=== PATIENT | female | born 1985 | race Caucasian/White ===

== ENCOUNTER 2016-06-22 13:37 | Day surgery (SDC) | payer BC, OTHER ==
[~2016-06-22] VITALS: Ht 157.5 cm; Wt 88.0 kg
[~2016-06-22 13:37] MED LIST: ALLEGRA ALLERGY60 MG PO; ASPIR 8181 M1 PO; ENDOCET 5-3251 EACH PO; GLUCOPHAGE XR,500 MG PO; IBUPROFEN800 MG PO; METFORMIN HCL500 M1 PO; PRENATAL TABLE1 EAC3 PO; VENTOLIN HFA18 GM IH; VITAMIN D10000 UNIT PO; ZANTAC75 M1 PO
[2016-06-22 14:35] LABS: HEMATOCRIT 35.8 % (36.0-46.0); MCH 29.3 PG (29.0-34.0); MCHC 34.4 G/DL (30.0-36.0); MCV 85.2 FL (83-99); MEAN PLAT.VOLUME 9.6 uM^3 (9.5-12.4); PLATELET COUNT 262 K/uL (156-360); RBC DIS.WIDTH-CV 13.1 % (11.8-14.6); RBC DIS.WIDTH-SD 40.5 % (39-53); WHITE BLOOD COUNT 8.6 K/uL (4.1-10.2)
[2016-06-22 14:36] VITALS: BP 115/74
[2016-06-22 17:05] VITALS: BP 109/59
[2016-06-22 18:09] VITALS: BP 100/56
[2016-06-22 20:05] VITALS: BP 109/70
== END 2016-06-22 20:30 | disposition home or self-care (01) ==
LOC: SDC 13:37
PROVIDERS: Obstetrics & Gynecology Maternal & Fetal Medicine
PROC: 0UVC7ZZ Restriction of Cervix, Via Natural or Artificial Opening (ICD-10-PCS; principal; 2016-06-22)
DX: O34.31 Maternal care for cervical incompetence, first trimester (principal); Z3A.11 11 weeks gestation of pregnancy; O99.280 Endocrine, nutritional and metabolic diseases complicating pregnancy, unspecified trimester; O26.21 Pregnancy care for patient with recurrent pregnancy loss, first trimester; E72.12 Methylenetetrahydrofolate reductase deficiency; Z79.82 Long term (current) use of aspirin; Z79.84 Long term (current) use of oral hypoglycemic drugs; E28.2 Polycystic ovarian syndrome; Z68.36 Body mass index [BMI] 36.0-36.9, adult; O99.511 Diseases of the respiratory system complicating pregnancy, first trimester; J45.909 Unspecified asthma, uncomplicated; O99.351 Diseases of the nervous system complicating pregnancy, first trimester; G43.909 Migraine, unspecified, not intractable, without status migrainosus
CPT/HCPCS: 85027; 86850; 86900; 86901; J7120

== ENCOUNTER 2016-10-04 09:03 | Outpatient (CLI) | payer BC ==
[2016-10-04] MEDS ORDERED: ZANTAC75 M1 PO (09:24)
[2016-10-04] MEDS ORDERED: CLARITIN10 M3 PO (09:24)
[2016-10-04 09:30] VITALS: BP 96/54
[2016-10-04 10:36] VITALS: BP 93/54
== END 2016-10-04 11:31 | disposition home or self-care (01) ==
LOC: LDRP-OP 09:03 → 2WEST 09:04
DX: O36.8120 Decreased fetal movements, second trimester, not applicable or unspecified (principal); Z3A.27 27 weeks gestation of pregnancy
CPT/HCPCS: 59025; G0378

== ENCOUNTER → 2016-10-08 | Outpatient (CLI) | payer BC ==
[~2016-10-08] VITALS: Ht 154.9 cm; Wt 93.0 kg
[~2016-10-08] MED LIST changes: +CLARITIN10 M3 PO
[2016-10-08 17:24] VITALS: BP 118/68
== END | disposition home or self-care (01) ==
LOC: IVINF 17:17
DX: Z31.82 Encounter for Rh incompatibility status (principal); Z3A.28 28 weeks gestation of pregnancy
CPT/HCPCS: 96372; J2790